=== PATIENT | male | born 1940 | race Caucasian/White ===

== ENCOUNTER → 2016-07-24 | Outpatient (CLI) | payer OTHER ==
[2016-07-24 17:46] LABS: HEMOGLOBIN A1C 7.56 % (4.2-6.0); MEAN BLOOD GLUCOSE (CALC) 165.748 mg/dL
== END ==
LOC: LAB 10:07
PROVIDERS: ATTEND Physician Assistant
DX: E11.9 Type 2 diabetes mellitus without complications (principal)
CPT/HCPCS: 83036

== ENCOUNTER → 2016-10-27 | Outpatient (CLI) | payer OTHER ==
[2016-10-27 06:44] LABS: BASOPHILS # (AUTO) 0.05 10*3/UL; BASOPHILS % (AUTO) 0.5 % (0-1); EOSINOPHILS # (AUTO) 0.23 10*3/UL; EOSINOPHILS % (AUTO) 2.5 % (0-8); HEMATOCRIT 42.3 % (42.0-52.0); HEMOGLOBIN 14.2 g/dL (14.0-18.0); MEAN CORPUSCULAR HEMOGLOBIN 28.7 PG (27-31); MEAN CORPUSCULAR HGB CONC 33.6 g/dL (33-37); MEAN CORPUSCULAR VOLUME 85.6 FL (80-90); MEAN PLATELET VOLUME 9.9 FL (7.4-12.2); MONOCYTES # (AUTO) 0.87 10*3/UL (0.3-0.8); MONOCYTES % (AUTO) 9.5 % (5-15); NEUTROPHILS # (AUTO) 5.65 10*3/UL; RED BLOOD COUNT 4.94 10^6/uL (4.70-6.10)
[2016-10-27 06:50] LABS: BUN/CREATININE RATIO 23.33 (6-20); CALCIUM 9.3 mg/dL (8.7-10.7); CHOL/HDL RATIO 4.88 RATIO (0-4.0); LDL CHOLESTEROL,CALCULATED 112.2 mg/dL; SERUM ALBUMIN 4.1 g/dL (3.5-4.8)
[2016-10-27 06:55] LABS: HEMOGLOBIN A1C 7.29 % (4.2-6.0)
[2016-10-27 07:15] LABS: PLATELET MORPHOLOGY COMMENT NORMAL MORPHOLOGY (NORM); RBC MORPHOLOGY COMMENT NORMAL MORPHOLOGY (NORM); WBC MORPHOLOGY COMMENT NORMAL MORPHOLOGY (NORM)
[2016-10-27 08:41] LABS: CREATININE, URINE 132.9 MG/DL (15-500)
== END ==
LOC: LAB 06:20
PROVIDERS: ATTEND Physician Assistant
DX: E11.9 Type 2 diabetes mellitus without complications (principal); E05.90 Thyrotoxicosis, unspecified without thyrotoxic crisis or storm; E78.5 Hyperlipidemia, unspecified; I10 Essential (primary) hypertension; R80.9 Proteinuria, unspecified
CPT/HCPCS: 36415; 80053; 80061; 82043; 82306; 83036; 84443; 85025

== ENCOUNTER → 2016-11-03 | Outpatient (CLI) | payer OTHER ==
[2016-11-05 14:45] LABS: 24 HOUR URINE TOTAL VOLUME 1150 ML
== END ==
LOC: LAB 12:41
PROVIDERS: ATTEND Nurse Practitioner Family
DX: E11.9 Type 2 diabetes mellitus without complications (principal); R80.9 Proteinuria, unspecified
CPT/HCPCS: 84156

== ENCOUNTER → 2016-11-20 | Outpatient (CLI) | payer OTHER ==
--- NOTE | 2016-11-20 14:53 | DI ---
XR KNEE 3 VW,11/20/2016 9:31 AM: Clinical History: Right knee pain Previous Exam: None at this facility. Findings: 3 views of the right knee are obtained, and demonstrate postsurgical changes consistent with a right medial knee hemiarthroplasty. Peripheral vascular calcifications are seen. There is no knee joint eff usion. There is no evidence of hardware loosening. Impression: Postsurgical changes consistent with a right medial hemiarthroplasty.
== END ==
LOC: ORTHO 09:21
PROVIDERS: ATTEND Orthopaedic Surgery
DX: Z47.89 Encounter for other orthopedic aftercare (principal); M25.561 Pain in right knee
CPT/HCPCS: 73562

== ENCOUNTER → 2016-11-30 | Outpatient (CLI) | payer OTHER | LOC: MMPC 11:27 | PROVIDERS: ATTEND Nurse Practitioner Family | DX: E11.40 Type 2 diabetes mellitus with diabetic neuropathy, unspecified (principal); I10 Essential (primary) hypertension; E78.5 Hyperlipidemia, unspecified | CPT/HCPCS: G0108 ==

== ENCOUNTER → 2016-12-27 | Outpatient (CLI) | payer OTHER ==
--- NOTE | 2016-12-27 21:44 | DI ---
US CAROTIDS B/L,12/27/2016 3:09 PM: Clinical History: Severe three-vessel coronary artery disease. Previous Exam: None at this facility. Findings: Multiple grayscale and color Doppler sonographic images are obtained through the carotid systems bila terally demonstrating some mild intimal thickening throughout without any severe peripheral vascular disease and without any significant elevated peak systolic velocity. ICA to CCA ratio on the right measured 0.9 on the left measured 0.9. Flow within the vertebral artery with antegrade bilaterally. Impression: No hemodynamically significant stenosis.
== END ==
LOC: US 15:03
DX: I25.10 Atherosclerotic heart disease of native coronary artery without angina pectoris (principal)
CPT/HCPCS: 93880

== ENCOUNTER → 2017-02-23 | Outpatient (CLI) | payer OTHER ==
[2017-02-23 15:56] LABS: HEMOGLOBIN A1C 6.42 % (4.2-6.0)
== END ==
LOC: MOB LAB 14:28
PROVIDERS: ATTEND Nurse Practitioner Family
DX: E11.9 Type 2 diabetes mellitus without complications (principal)
CPT/HCPCS: 36415; 83036